=== PATIENT | male | born 1990 | race Caucasian/White ===

== ENCOUNTER 2016-07-21 22:51 | Emergency (ER) | payer MEDICAID ==
[~2016-07-21] VITALS: Ht 175.3 cm; Wt 167.8 kg
[2016-07-21 23:21] VITALS: BP 140/86
--- NOTE | 2016-07-21 23:24 | NUR ---
26Y M BIB SELD C/O RT EAR PAIN, EAR BACKING STUCK IN PLACE . PT DENIES N/V/D; SKIN IS PINK/WARM/DRY; AAOX4 WITH EVEN AND STEADY GAIT; LUNGS CLEAR BL; HR EVEN AND REGULAR; PT DENIES ANY FEVER, CP, SOB, OR COUGH AT THIS TIME; PATIENT STATES PAIN OF 2/10 AT THIS TIME; VSS; PATIENT POSITIONED FOR COMFORT; HOB ELEVATED; BEDRAILS UP X2; BED DOWN. ER MD MADE AWARE OF PT STATUS.
--- NOTE | 2016-07-21 23:25 | NUR ---
VERBAL ORDER FOR LIDOCAINE 1% BY ER MD DR PRIETO TO ADMINISTER IN TRIAGE
--- NOTE | 2016-07-21 23:25 | NUR ---
Dr. Zarate evaluating patient at triage.
--- NOTE | 2016-07-21 23:29 | NUR ---
Lety cheek in ED - 07/21/16 at 2349 by JACKIE VERBAL ORDER FOR LIDOCAINE 1% BY ER MD DR PRIETO TO ADMINISTER IN TRIAGE
[2016-07-21] MEDS ORDERED: LIDOCAINE 1% ED 50 ML ONE (23:31)
[2016-07-21] MEDS ORDERED: LIDOCAINE 1% 500 MG/50 ML VIAL INJ ONE (23:45)
[2016-07-21 23:46] VITALS: BP 136/89
--- NOTE | 2016-07-21 23:46 | NUR ---
Patient discharged with v/s stable. Written and verbal after care instructions given and explained. Patient alert, oriented and verbalized understanding of instructions. Ambulatory with steady gait. All questions addressed prior to discharge. ID band removed. Patient advised to follow up with PMD. Rx of TYLENOL 325MG given. Patient educated on indication of medication including possible reaction and side effects. Opportunity to ask questions provided and answered.
== END 2016-07-21 23:41 | disposition home or self-care (01) ==
LOC: MED 23:02
DX: T16.1XXA Foreign body in right ear, initial encounter (principal); R03.0 Elevated blood-pressure reading, without diagnosis of hypertension; X58.XXXA Exposure to other specified factors, initial encounter; Y93.89 Activity, other specified; Y92.89 Other specified places as the place of occurrence of the external cause; Y99.8 Other external cause status
CPT/HCPCS: 69200; 99284; J2001

== ENCOUNTER 2019-03-30 14:40 | Emergency (ER) | payer MEDICAID ==
[~2019-03-30] VITALS: Ht 175.3 cm; Wt 131.5 kg
[2019-03-30 14:54] VITALS: BP 145/82
[2019-03-30] MEDS ORDERED: BACITRACIN OINT 500 UNITS/GM PKT TP ONE (15:15)
[2019-03-30 16:05] VITALS: BP 145/82
== END 2019-03-30 16:06 | disposition home or self-care (01) ==
LOC: MED 14:40
DX: L03.032 Cellulitis of left toe (principal)
CPT/HCPCS: 29515; 82948; 99283

== ENCOUNTER 2022-03-17 09:50 | Emergency (ER) | payer MEDICAID ==
[~2022-03-17] VITALS: Ht 177.8 cm; Wt 138.3 kg
[2022-03-17 10:26] VITALS: BP 139/87
--- NOTE | 2022-03-17 10:28 | NUR ---
PT TO LOBBY WAITING FOR BED.
--- NOTE | 2022-03-17 10:47 | NUR ---
URINE SPECIMEN CUP PROVIDED
--- NOTE | 2022-03-17 11:00 | NUR ---
BIB SELF C/O 9/10 BACK PAIN AND LEFT LEG NUMBNESS ON AND OFF FOR 2 MONTHS. DENIES DYSURIA.
[2022-03-17 11:57] LABS: APPEARANCE,URINE CLEAR (CLEAR); BILIRUBIN,URINE NEGATIVE (NEGATIVE); BLOOD, URINE NEGATIVE (NEGATIVE); COLOR,URINE YELLOW (YELLOW); LEUKOCYTE ESTERASE ,URINE NEGATIVE (NEGATIVE); NITRITE, URINE NEGATIVE (NEGATIVE); UGLUCOSE NEGATIVE (NEGATIVE)
[2022-03-17] MEDS ORDERED: KETOROLAC 30 MG/ML VIAL IM ONE (12:20)
[2022-03-17] MEDS ORDERED: LID5T TP (12:45)
[2022-03-17] MEDS ORDERED: CYCL-711 PO (12:45)
[2022-03-17] MEDS ORDERED: IBUP-2218 PO (12:45)
[2022-03-17] MEDS ORDERED: METH4TAB3 PO (12:45)
[2022-03-17 13:00] VITALS: BP 130/84
--- NOTE | 2022-03-17 13:00 | NUR ---
Patient discharged with v/s stable. Written and verbal after care instructions given. Patient alert, oriented and verbalized understanding of instructions. Ambulatory with steady gait. All questions addressed prior to discharge. ID band removed. Patient advised to follow up with PMD. Rx of Flexeril, Ibuprofen, Lidocaine and Medrol given. Opportunity to ask questions provided and answered.
--- NOTE | 2022-03-17 18:56 | NUR ---
The patient's care was reviewed and supervised by Xochilt Barron RN, RN.
== END 2022-03-17 13:00 | disposition home or self-care (01) ==
LOC: MED 09:50
DX: M54.16 Radiculopathy, lumbar region (principal); R03.0 Elevated blood-pressure reading, without diagnosis of hypertension
CPT/HCPCS: 72100; 81003; 96372; 99284; J1885